=== PATIENT | male | born 1955 | race Caucasian/White ===

== ENCOUNTER 2019-02-14 11:36 | Outpatient (CLI) | payer OTHER, SELFPAY | END 2019-02-14 16:00 | disposition home or self-care (01) | LOC: PHYS 11:37 | PROVIDERS: PCP Orthopaedic Surgery; Visit Provider Family Medicine | DX: G56.22 Lesion of ulnar nerve, left upper limb (principal); G56.02 Carpal tunnel syndrome, left upper limb | CPT/HCPCS: 95886; 95909 ==